=== PATIENT | female | born 1980 | race Caucasian/White ===

== ENCOUNTER 2022-11-14 14:47 | Emergency (ER) | payer MEDICAID ==
[~2022-11-14] VITALS: Ht 165.1 cm; Wt 70.5 kg
[2022-11-14 14:53] VITALS: TEMP 98.9
[2022-11-14 16:15] LABS: INFLUENZA TYPE A NEGATIVE FOR TYPE A (NEGATIVE); INFLUENZA TYPE B NEGATIVE FOR TYPE B (NEGATIVE)
[2022-11-14] MEDS ORDERED: OXYM30SP27 NASAL (17:46)
[2022-11-14] MEDS ORDERED: AZIT250T9 PO (17:46)
[2022-11-14 18:07] VITALS: BP 128/78; PULSE 82; RESP 18
== END 2022-11-14 18:12 | disposition home or self-care (01) ==
LOC: EMS 14:47
DX: J32.9 Chronic sinusitis, unspecified (principal)
CPT/HCPCS: 87804; 99283